=== PATIENT | female | born 1940 | race Two or more races ===

== ENCOUNTER 2017-09-15 19:33 | Inpatient (IN) | payer MEDICARE ==
[~2017-09-15] VITALS: Ht 160 cm; Wt 74.8 kg
[2017-09-15] MEDS ORDERED: MAGNESIUM HYDROXIDE 30 ML UDC PO PRN (20:00)
[2017-09-15] MEDS ORDERED: ACETAMINOPHEN 325 MG TABLET PO PRN (20:00)
[2017-09-15] MEDS ORDERED: ZOLPIDEM TARTRATE 5 MG TABLET PO PRN (20:00)
[2017-09-15] MEDS ORDERED: MAG HYDROX/AL HYDROX/SIMETH 30 ML UDC PO PRN (20:00)
--- NOTE | 2017-09-15 20:00 | NUR ---
GPS PUSH BUTTON SWITCH ASSEMBLER NOTES: ADMITTED AT 77YO/ FEMALE FROM [facility] ON 5150 HOLD FOR DANGER TO SELF AND GRAVE DISABILITY. PER HOLD, PATIENT WAS OBSERVED DRIVING AT SPEED OVER 100MPH, INVOLVED IN HIGH SPEED PURSUIT. PATIENT WILL BE UNDER THE CARE OF DR. JONES AND DR. RITTER, PSYCHE AND MEDICAL DOCTORS RESPECTIVELY. PATIENT BROUGHT INTO THE UNIT BY EMT PERSONNEL, USHERED TO BED. CHANGED TO PATIENT'S GOWN. PATIENT AT FIRST WAS RESISTANT WITH STAFF WITH SHE WAS BEING HELP BUT SOMEHOW MANAGED TO COOPERATE AFTER BEING EXPLAINED THOROUGHLY. UPON FACE TO FACE ASSESSMENT BY THE SUPERVISOR PORCELAIN DEPARTMENT, THE PATIENT PRESENTS ALERT AND ORIENTED X1-2, PATIENT ABLE TO ANSWER QUESTION LIKE HER BIRTHDAY AND THE YEAR, HOWEVER SHE HAS FLIGHT OF IDEAS, LIKE WHEN BEING ASKED, "DO YOU HAVE MEDICAL PROBLEMS AND MEDICATIONS THAT YOU'RE TAKING?" PATIENT ANSWERED, "YES, I TAKE VITAMIN D, 3 MEQ DAILY AND OXYGEN, AND YEAH, SILVER AND GOLD HAVE I NONE, BUT IT'S ONLY YOU!", "I NEED TO TAKE THE FLY OUT OF YOUR SHIRT"! SHE APPEARS TO BE UNKEMPT, DISHEVELED, NOT ABLE TO STATE WHAT SHE NEEDS. SHE HAS PERIODS OF GETTING AGITATED AND SCREAMING AT STAFF. NEEDS REDIRECTION AT TIMES. LIMIT SETTING DONE. REALITY ORIENTATION DONE. BELONGINGS AND CONTRABAND CHECKED. SKIN AND BODY ASSESSMENT CHECKED WITH CHRISTOPHER BERNARD. PICTURES TAKEN AND PLACED IN THE CHART. PATIENT ORIENTED TO STAFF, UNIT, CARE PLAN AND DOCTORS. Q15 MIN CHECKS INITIATED. PATIENT IS AMBULATORY HOWEVER FALL PRECAUTIONS IS STILL OBSERVED. PATIENT HAS NO KNOWN MEDICAL PROBLEM PER REPORT FROM EMT PERSONNEL AND DAY SHIFT NURSESKIP. NO INFORMATION PROVIDED FOR FAMILY TO NOTIFY. WILL COLLABORATE WITH COMPOSITION STONE APPLICATOR ON THESE MATTERS. WILL MONITOR PATIENT'S MOOD AND BEHAVIOR. WILL ENDORSE PATIENT TO DAY SHIFT NURSE.
[2017-09-15 20:35] VITALS: BP 155/53
[2017-09-16] MEDS ORDERED: ZOLPIDEM TARTRATE 5 MG TABLET ONE (00:16)
--- NOTE | 2017-09-16 00:19 | NUR ---
GPS RN NOTES: PATIENT REQUESTED FOR SLEEPING MEDICATION- AMBIEN 5 MG PULLED OUT FROM OMNICELL BY HEAD OF ETHICS AND COMPLIANCE-MIGEL AN OVERRIDE. GIVEN TO PATIENT REQUESTED. WILL MONITOR PATIENT'S SLEEPING PATTERN.
[2017-09-16] MEDS ORDERED: ASPI81TA35 (06:25)
[2017-09-16] MEDS ORDERED: CALC0.253 (06:25)
[2017-09-16] MEDS ORDERED: SIMV20TA6 (06:25)
[2017-09-16] MEDS ORDERED: QUET25TA (06:25)
[2017-09-16] MEDS ORDERED: ESZO1TAB12 (06:25)
[2017-09-16 08:00] VITALS: BP 127/53
[2017-09-16] MEDS: VENLAFAXINE XR 75 MG CAP.SR.24H PO SCH (14:07)
[2017-09-16 15:53] VITALS: BP 141/67
[2017-09-16 19:55] VITALS: BP 141/68
[2017-09-16] MEDS: QUETIAPINE FUMARATE 25 MG TABLET PO SCH (22:06)
[2017-09-17 08:00] VITALS: BP 130/64
[2017-09-17] MEDS: VENLAFAXINE XR 75 MG CAP.SR.24H PO SCH (08:46)
[2017-09-17 08:49] LABS: ALANINE AMINOTRANSFERASE 34 U/L (12-78); ALBUMIN 3.4 g/dL (3.4-5.0); ALKALINE PHOSPHATASE 62 U/L (46-116); ASPARTATE AMINOTRANSFERASE 34 U/L (15-37); BILIRUBIN,TOTAL 0.6 mg/dL (0.2-1.0); CALCIUM, SERUM 9.1 mg/dL (8.5-10.1); CARBON DIOXIDE 29 mmol/L (21-32); CHLORIDE 108 mmol/L (98-107); CREATININE 1.4 mg/dL (0.6-1.3); GLUCOSE 107 mg/dL (74-106); POTASSIUM 3.9 mmol/L (3.5-5.1); SODIUM SERUM 147 mmol/L (136-145); UREA NITROGEN, BLOOD 29 mg/dL (7-18)
[2017-09-17 08:54] LABS: CHOLESTEROL 219 mg/dL (<200); HDL CHOLESTEROL 68 mg/dL (40-60); LDL 126 mg/dL (0-99); TRIGLYCERIDES 111 mg/dL (30-150)
[2017-09-17 11:12] LABS: THYROID STIMULATING HORMONE 0.862 uIU/mL (0.358-3.74)
[2017-09-17 12:17] LABS: BASOPHILS % (AUTO) 0.1 % (0.0-2.0); EOSINOPHILS # (AUTO) 0.1 /CMM (0.0-0.7); EOSINOPHILS % (AUTO) 0.8 % (0.0-6.0); HEMATOCRIT 39 % (33-45); HEMOGLOBIN 12.8 g/dL (11.5-14.8); LYMPHOCYTES # (AUTO) 1.5 /CMM (0.8-4.8); LYMPHOCYTES % (AUTO) 12.7 % (20.0-44.0); MEAN CORPUSCULAR HEMOGLOBIN 29 PG (26.0-33.0); MEAN CORPUSCULAR HGB CONC 33 g/dl (31.0-36.0); MEAN CORPUSCULAR VOLUME 88 fL (82-100); MONOCYTES # (AUTO) 0.7 /CMM (0.1-1.30); MONOCYTES % (AUTO) 5.7 % (2.0-12.0); NEUTROPHILS # (AUTO) 9.5 /CMM (1.8-8.9); NEUTROPHILS % (AUTO) 80.7 % (43.0-81.0); PLATELET COUNT (AUTO) 318 /CMM (150-450); RDW COEFFICIENT OF VARIATION 14.1 (11.5-15.0); WHITE BLOOD COUNT (AUTO) 11.8 K/uL (4.3-11.0)
[2017-09-17 15:35] VITALS: BP 146/78
[2017-09-17 20:00] VITALS: BP 166/92
[2017-09-17] MEDS: QUETIAPINE FUMARATE 25 MG TABLET PO SCH (21:42)
[2017-09-18 07:40] LABS: APPEARANCE,URINE CLOUDY (CLEAR); BILIRUBIN,URINE 2+ (NEGATIVE); BLOOD, URINE NEGATIVE Ery/uL (NEGATIVE); COLOR,URINE YELLOW (YELLOW); KETONES,URINE 1+ (NEGATIVE); LEUKOCYTE ESTERASE ,URINE TRACE (NEGATIVE); NITRITE, URINE NEGATIVE (NEGATIVE); PROTEIN,URINE 1+ mg/dl (NEGATIVE); UGLUCOSE NEGATIVE (NEGATIVE); UROBILINOGEN,URINE 0.2 EU/dL (0.2)
[2017-09-18] MEDS: VENLAFAXINE XR 75 MG CAP.SR.24H PO SCH (08:20)
[2017-09-18 08:55] LABS: BACTERIA,URINE Few /HPF (None Seen); RBC,URINE 0-2 /HPF (0-2); SQUAMOUS EPITHELIAL CELL,UR Few /HPF (None Seen); URINE AMORPHOUS URATE Many /HPF (None Seen)
[2017-09-18 09:27] VITALS: BP 140/59
--- NOTE | 2017-09-18 11:03 | NUR ---
Initial Discharge Note: [place] [address] [address]. Patient states she wants to return home. CYN received a call from patient's long-term outpatient psychiatrist, Dr. Franco [phone]. Dr. Franco stated that patient is usually on 325mg of Seroquel and that she is very functional. CYN will relay this information to psychiatrist Dr. Banks. Dr. 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 CYN called patient's son, Felipe Robertson at [phone] and left him a voicemail with her direct contact information.
[2017-09-18 16:28] VITALS: BP 166/73
[2017-09-18] MEDS: LORAZEPAM 1 MG TABLET PO PRN (19:45)
[2017-09-18 20:54] VITALS: BP 172/72
[2017-09-18] MEDS: QUETIAPINE FUMARATE 25 MG TABLET PO SCH (21:16)
[2017-09-19 08:00] VITALS: BP 135/77
[2017-09-19] MEDS: VENLAFAXINE XR 75 MG CAP.SR.24H PO SCH (08:22)
[2017-09-19] MEDS ORDERED: diphenhydrAMINE HCL 50 MG CAPSULE PO PRN (15:30)
[2017-09-19 15:34] VITALS: BP 139/69
--- NOTE | 2017-09-19 19:45 | NUR ---
GPS/TOMOGRAPHIC TECH; RECEIVED PT IN HER ROOM SITTING ON THE CHAIR CLOSED TO THE OTHER PT IN BED -2 KEEP TALKING AND KIND OF DISTURBANCE TO THE PT IN BED # 2. PT WAS INSTRUCTED TO MOVE TO HER BED .
[2017-09-19 20:00] VITALS: BP 142/78
--- NOTE | 2017-09-19 22:00 | NUR ---
GPS/SAP ARCHITECT; AT THIS TIME PT STILL SITTING ON THE CHAIR NEAR HER BED TALKING TO HERSELF.
[2017-09-19] MEDS: QUETIAPINE FUMARATE 25 MG TABLET PO SCH (22:16)
[2017-09-19] MEDS: LORAZEPAM 1 MG TABLET PO PRN (23:13)
--- NOTE | 2017-09-19 23:55 | NUR ---
GPS/LENS POLISHER; RODRICK ESPINOZA TOLD ME THAT PT FELT DIZZY. I CHECKED THE PT NOTED SITTING ON THE CHAIR SLEEPING . BREATHING FINE. I WOKE UP THE PT AND WITH THHE HELP OF THE MANAGER STRATEGY & ACCOUNTKolby AGUILA WE TRANSFERRED THE PT TO BED.
[2017-09-20 08:00] VITALS: BP 135/94
[2017-09-20] MEDS: LORAZEPAM 1 MG TABLET PO PRN ×2 (08:35→19:38)
[2017-09-20] MEDS: VENLAFAXINE XR 75 MG CAP.SR.24H PO SCH (08:36)
--- NOTE | 2017-09-20 08:36 | NUR ---
RN-CO: ATIVAN 1 MG PO GIVEN, PATIENT IS VERY RESTLESS, AND ANXIOUS.
--- NOTE | 2017-09-20 09:00 | NUR ---
Discharge Planning: CYN spoke with patient's son Felipe Robertson at [phone]. Felipe stated that he just wanted updates regarding his mom. Felipe stated that he had no concerns regarding his mom returning home once she is stable.
[2017-09-20 16:44] VITALS: BP 132/86
[2017-09-20] MEDS: DRONABINOL (2.5 MG) 2.5 MG CAPSULE PO SCH (16:49)
--- NOTE | 2017-09-20 19:38 | NUR ---
DWP-MB-NDRKS: GAVE ATIVAN 1 MG PO DUE TO SEVERE ANXIETY UPON PT REQUEST AND WILL CONTINUE TO MONITOR FOR EFFECTIVENESS OF MEDICATION
[2017-09-20 20:00] VITALS: BP 155/71
[2017-09-20] MEDS: QUETIAPINE FUMARATE 25 MG TABLET PO SCH (21:20)
[2017-09-21 08:00] VITALS: BP 149/81
[2017-09-21] MEDS: VENLAFAXINE XR 75 MG CAP.SR.24H PO SCH (09:34)
[2017-09-21] MEDS: DRONABINOL (2.5 MG) 2.5 MG CAPSULE PO SCH ×2 (09:34→16:40)
[2017-09-21 16:00] VITALS: BP 142/69
--- NOTE | 2017-09-21 19:03 | NUR ---
GPS/RN PT CHOOSE NOT TO ANSWER TO RN(SELECTIVELY MUTE) SHE WAS COMMUNICATING WITH NURSE MILDRED THE SHIFT. VSS. 142/60 O2 94.
[2017-09-21 20:00] VITALS: BP 156/79
[2017-09-21] MEDS: QUETIAPINE FUMARATE 25 MG TABLET PO SCH (21:29)
[2017-09-22 08:00] VITALS: BP 148/76
[2017-09-22] MEDS: DRONABINOL (2.5 MG) 2.5 MG CAPSULE PO SCH ×2 (08:43→17:09)
[2017-09-22] MEDS: VENLAFAXINE XR 75 MG CAP.SR.24H PO SCH (08:43)
[2017-09-22 16:11] VITALS: BP 157/64
[2017-09-22 19:40] VITALS: BP 153/73
[2017-09-22] MEDS: QUETIAPINE FUMARATE 25 MG TABLET PO SCH (21:29)
[2017-09-23] MEDS: DRONABINOL (2.5 MG) 2.5 MG CAPSULE PO SCH ×2 (08:08→16:17)
[2017-09-23] MEDS ORDERED: VENLAFAXINE XR 75 MG CAP.SR.24H PO SCH (09:00)
[2017-09-23 09:50] VITALS: BP 162/78
[2017-09-23] MEDS: VENLAFAXINE XR 75 MG CAP.SR.24H PO SCH (12:33)
[2017-09-23 16:00] VITALS: BP 161/80
[2017-09-23 19:53] VITALS: BP 178/113
[2017-09-23] MEDS: QUETIAPINE FUMARATE 25 MG TABLET PO SCH (21:32)
[2017-09-24] MEDS: LORAZEPAM 0.5 MG TABLET PO PRN ×3 (05:13→11:04)
[2017-09-24 08:00] VITALS: BP 160/78
[2017-09-24] MEDS: DRONABINOL (2.5 MG) 2.5 MG CAPSULE PO SCH ×2 (10:59→16:46)
[2017-09-24] MEDS: VENLAFAXINE XR 75 MG CAP.SR.24H PO SCH (10:59)
--- NOTE | 2017-09-24 11:04 | NUR ---
rn notes administered ativan 0.25 mg po prn for anxiety , yelling, paranoid, delusional, and screaming, v/s taken bp-160/ 78, p-96, continued monitoring.
[2017-09-24] MEDS: QUETIAPINE FUMARATE 25 MG TABLET PO SCH ×3 (11:34→21:33)
[2017-09-24 16:29] VITALS: BP 147/61
[2017-09-24 20:31] VITALS: BP 135/73
[2017-09-24] MEDS ORDERED: QUETIAPINE FUMARATE 100 MG TABLET ONE (21:25)
--- NOTE | 2017-09-24 21:31 | NUR ---
GPS RN NOTES: QUANTITY OF SEROQUEL 25MG DOES NOT MEET THE INTENDED DOSE THERE WERE 3 ITEMS LEFT IN THE OMNICELL. CHARGE NURSE CAROL NOTIFIED, SHE PULLED OUT FROM OMNICELL AN OVERRIDE, SEROQUEL 100MG 1 TAB. ADMINISTERED TO PATIENT ORDERED.
[2017-09-25] MEDS: LORAZEPAM 0.5 MG TABLET PO PRN (03:43)
[2017-09-25 08:00] VITALS: BP 133/81
[2017-09-25] MEDS: VENLAFAXINE XR 75 MG CAP.SR.24H PO SCH (09:34)
[2017-09-25] MEDS: DRONABINOL (2.5 MG) 2.5 MG CAPSULE PO SCH ×2 (09:34→17:27)
[2017-09-25] MEDS: QUETIAPINE FUMARATE 25 MG TABLET PO SCH ×3 (09:34→21:20)
[2017-09-25 16:00] VITALS: BP 122/72
--- NOTE | 2017-09-25 17:04 | NUR ---
RNKarthikeyanCO: PATIENT STATED " I WAS NEVER EVER ALLERGIC TO ASPIRIN." " " IT HELPED ME A LOT FOR MY HEADACHE."
[2017-09-25] MEDS ORDERED: IBUPROFEN 400 MG TABLET PO ONE (17:30)
[2017-09-25 20:21] VITALS: BP 112/80
[2017-09-26 08:00] VITALS: BP 141/88
[2017-09-26] MEDS: QUETIAPINE FUMARATE 25 MG TABLET PO SCH ×2 (08:55→21:41)
[2017-09-26] MEDS: DRONABINOL (2.5 MG) 2.5 MG CAPSULE PO SCH ×2 (08:55→16:52)
[2017-09-26] MEDS: VENLAFAXINE XR 75 MG CAP.SR.24H PO SCH (08:55)
[2017-09-26 16:06] VITALS: BP 126/79
[2017-09-26] MEDS: QUETIAPINE FUMARATE 100 MG TABLET PO SCH (16:52)
[2017-09-26 20:00] VITALS: BP 113/64
--- NOTE | 2017-09-26 22:34 | NUR ---
Patient is calm and cooperative, observed sitting up in chair, alert but confuse at times. Patient denies thought of harming others or self, no AVH noted. Patient accepted and tolerates hs medications with no apparent distress noted, will continue to monitor for safety and provide support.
--- NOTE | 2017-09-27 03:02 | NUR ---
At the present time, patient is observed resting in bed with eyes closed, respirations even and unlabored, will continue to monitor for safety and provide support.
[2017-09-27 08:00] VITALS: BP 114/58
[2017-09-27] MEDS: QUETIAPINE FUMARATE 100 MG TABLET PO SCH ×4 (09:05→22:26)
[2017-09-27] MEDS: VENLAFAXINE XR 75 MG CAP.SR.24H PO SCH (09:06)
[2017-09-27] MEDS: DRONABINOL (2.5 MG) 2.5 MG CAPSULE PO SCH ×2 (09:06→17:40)
--- NOTE | 2017-09-27 11:14 | NUR ---
Discharge Planning: On 09/25/17, CYN informed Dr. Banks that patient's long-term outpatient psychiatrist, Dr. Franco [phone] would like a phone call. Today, 09/27/17, Dr. Banks informed CYN that he had a conversation with Dr. Franco regarding patient's discharge/treatment and that patient will be going to a IOP [intensive outpatient program]. CYN called and left a voicemail for Dr. Franco to confirm the discharge plan and to discuss details of the discharge.
[2017-09-27 16:00] VITALS: BP 120/57
--- NOTE | 2017-09-27 18:17 | NUR ---
PATIENT APPEARED MORE DEPRESSED THIS SHIFT WITH LITTLE SELF DISCLOUSURE ,MED COMPLIANT EATING A LITTLE NEEDS ENCOURAGEMENT. CONTINUE TO MONITOR
[2017-09-27 21:43] VITALS: BP 127/58
--- NOTE | 2017-09-28 07:34 | NUR ---
AT AROUND 0700. PATIENT WAS FOUND ON THE FLOOR. NO PULSE, NO BP. CALLED [facility]ALANI JARQUIN TEAM. INTUBATED AT 0705. RN TRADER FIXED INCOME AWARE. INFORMED DR. ESTRADA REGARDING THE INCIDENT. ORDERED TRANSFER TO ICU ROOM 257 AT 0710. LATEST V/S 115/87 PULSE 161 BLOOD SUGAR 257MG/DL. CALLED SON BRIAN JOHN LEFT MESSAGE ON VOICEMAIL.
== END 2017-09-28 07:19 | disposition short-term general hospital (02) | DRG 885 ==
LOC: GPS 19:33
PROVIDERS: ADMIT Psychiatry & Neurology Psychiatry; ATTEND Psychiatry & Neurology Psychiatry
DX: F32.3 Major depressive disorder, single episode, severe with psychotic features (principal); I21.A1 Myocardial infarction type 2; N17.0 Acute kidney failure with tubular necrosis; I46.9 Cardiac arrest, cause unspecified; E87.0 Hyperosmolality and hypernatremia; F23 Brief psychotic disorder; R57.9 Shock, unspecified; J93.9 Pneumothorax, unspecified; E78.5 Hyperlipidemia, unspecified; F03.90 Unspecified dementia, unspecified severity, without behavioral disturbance, psychotic disturbance, mood disturbance, and anxiety; Z79.82 Long term (current) use of aspirin; Z79.899 Other long term (current) drug therapy; Z81.8 Family history of other mental and behavioral disorders; F29 Unspecified psychosis not due to a substance or known physiological condition
CPT/HCPCS: 36415; 70450-TC; 71045-TC; 80053-TC; 80061-TC; 81000-TC; 82746; 82962-TC; 83540-TC; 84443-TC; 84484-TC; 85025-TC; 87081-TC; Q0163; Q0167

== ENCOUNTER 2017-09-28 07:24 | Inpatient (IN) | payer MEDICARE ==
[2017-09-28] VITALS (52 sets, daily range): BP systolic 63–211; BP diastolic 40–159
[~2017-09-28] VITALS: Ht 162.6 cm; Wt 79.1 kg
--- NOTE | 2017-09-28 07:00 | NUR ---
HR COORDINATOR RECEIVED PATIENT FROM GPS, UNRESPONSIVE, INTUBATED ON MECHANICAL VENTILATORY SUPPORT SATURATION AT 70% NO RESPONSE TO PAIN STIMULI NO MOVEMENT CONNECTED TO AUTOMOBILE BODY WORKER, WEAK PULSES NOTED UPON PALPATION ARRHYTHMIA NOTED BLOOD PRESSURE UNABLE TO GET 0706 PATIENT WENT TO CARDIAC ARREST THE SECOND TIME CPR STARTED, EPINEPHRINE GIVEN X2 , BICAR X 1 STARTED LEVOPHED AT 10 MCGS, SBP AT 50'S RESUSCITATED AT 0722 CENTRAL LINE INSERTED BY NEMESIO ROUSE SMALL CATHETER DRAINING TO YELLOWISH URINE, LARGE IN AMOUNT MONITORED CLOSELY Addendum: 09/28/17 at 1820 by ALEXANDER ALFRED RN NEMESIO ROUSE INSERTED CHEST TUBE LOCATED AT HIS LEFT LOWER CHEST LYING AT THE PATIENT'S MID-AXILLARY LINE CENTRAL CATHETER IS ALSO INTERNAL SECURITY MANAGER OVER FEMORAL VEIN PRIOR TO CHEST TUBE INSERTION CENTRAL LINE PATENT AND INTACT
[~2017-09-28 07:24] MED LIST: ASPI81TA35; CALC0.253; ESZO1TAB12; QUET25TA; SIMV20TA6
[2017-09-28] MEDS ORDERED: IV NS 0.9% 1,000 ML BAG IV PRN (08:00)
[2017-09-28 08:16] LABS: BASOPHILS % (AUTO) 0.2 % (0.0-2.0); EOSINOPHILS # (AUTO) 0.1 /CMM (0.0-0.7); EOSINOPHILS % (AUTO) 0.6 % (0.0-6.0); HEMATOCRIT 32 % (33-45); HEMOGLOBIN 10.5 g/dL (11.5-14.8); LYMPHOCYTES % (AUTO) 17.3 % (20.0-44.0); MEAN CORPUSCULAR HEMOGLOBIN 29 PG (26.0-33.0); MEAN CORPUSCULAR HGB CONC 33 g/dl (31.0-36.0); MEAN CORPUSCULAR VOLUME 88 fL (82-100); MONOCYTES # (AUTO) 0.5 /CMM (0.1-1.30); MONOCYTES % (AUTO) 4.4 % (2.0-12.0); NEUTROPHILS # (AUTO) 8.8 /CMM (1.8-8.9); NEUTROPHILS % (AUTO) 77.5 % (43.0-81.0); PLATELET COUNT (AUTO) 95 /CMM (150-450); RDW COEFFICIENT OF VARIATION 15.4 (11.5-15.0); WHITE BLOOD COUNT (AUTO) 11.4 K/uL (4.3-11.0)
[2017-09-28 08:23] LABS: CALCIUM, SERUM 7.7 mg/dL (8.5-10.1); CARBON DIOXIDE 19 mmol/L (21-32); CHLORIDE 106 mmol/L (98-107); CREATININE 1.7 mg/dL (0.6-1.3); GLUCOSE 281 mg/dL (74-106); POTASSIUM 4.1 mmol/L (3.5-5.1); SODIUM SERUM 144 mmol/L (136-145); UREA NITROGEN, BLOOD 26 mg/dL (7-18)
[2017-09-28 08:30] LABS: INR 1.34 (0.87-1.13)
[2017-09-28 08:32] LABS: ALANINE AMINOTRANSFERASE 114 U/L (12-78); ALBUMIN 2.2 g/dL (3.4-5.0); ALKALINE PHOSPHATASE 68 U/L (46-116); ASPARTATE AMINOTRANSFERASE 128 U/L (15-37); BILIRUBIN,TOTAL 0.4 mg/dL (0.2-1.0)
[2017-09-28 08:36] LABS: TROPONIN I 0.355 ng/mL (0.00-0.056)
[2017-09-28] MEDS ORDERED: IV NS 0.9% 1,000 ML IV PRN ×2 (08:49→09:30)
[2017-09-28 09:00] LABS: ABG BASE EXCESS -6.2 mmol/L; ABG OXYGEN SATURATION 98.7 % (92.0-98.5); ABG PCO2 31.5 mmHg (35.0-45.0); ABG PH 7.374 (7.350-7.450); ABG PO2 301.1 mmHg (75.0-100.0); AaDO2 380.4 mmHg; COHb 0.3 % (0.5-1.5); MetHb 0.3 % (0.0-1.5); O2Hb 98.1 % (94.0-97.0); SITE, ABG Right Radial; VT, ABG 550 mL
[2017-09-28] MEDS ORDERED: ENOXAPARIN SODIUM 40 MG/0.4 ML DISP.SYRIN SQ SCH (09:00)
[2017-09-28] MEDS ORDERED: ZOLPIDEM TARTRATE 5 MG TABLET PO PRN (09:00)
[2017-09-28] MEDS ORDERED: ACETAMINOPHEN 325 MG TABLET PO PRN (09:00)
[2017-09-28] MEDS ORDERED: Z GUARD REMEDY 2 OZ OINT TP PRN (09:00)
[2017-09-28] MEDS ORDERED: ONDANSETRON HCL/PF 4 MG/2 ML VIAL IVP PRN (09:00)
--- NOTE | 2017-09-28 09:00 | NUR ---
PAINT FACTORY WORKER DR. MONTENEGRO CAME IN TO PUT A NEW CHEST TUBE OVER THE PATIENT'S LEFT ANTERIOR CHEST DUE TO TENSION PNEUMOTHORAX MONITORED CHEST TUBE DRAINAGE AND INTERMITTENT FLUCTUATION SEEN AT THE PLEUR E VAC
[2017-09-28] MEDS: PANTOPRAZOLE 40 MG VIAL IV SCH (09:26)
[2017-09-28] MEDS: IV NS 0.9% 1,000 ML IV PRN ×2 (09:52→17:48)
[2017-09-28 09:59] LABS: BAND % (MANUAL) 1 % (0.0-5.0); EOSINOPHILS % (MANUAL) 1 % (0-4); LYMPHOCYTES % (MANUAL) 10 % (16-48); MONOCYTES % (MANUAL) 3 % (0-11.0); NEUTROPHILS % (MANUAL) 85 (42-76)
--- NOTE | 2017-09-28 10:52 | NUR ---
PT. UNSTABLE FOR CT PER JASS.
[2017-09-28] MEDS ORDERED: ENOXAPARIN SODIUM 30 MG/0.3 ML DISP.SYRIN SQ SCH (11:00)
[2017-09-28] MEDS: PROPOFOL 10MG/ML 50ML 50 ML IV PRN ×3 (12:00→18:55)
[2017-09-28] MEDS ORDERED: LORAZEPAM INJ 2 MG/ML VIAL ONE (13:22)
[2017-09-28 13:24] LABS: MAGNESIUM 2.3 mg/dL (1.8-2.4); PHOSPHORUS 7.3 mg/dL (2.5-4.9)
[2017-09-28] MEDS: LORAZEPAM INJ 2 MG/ML VIAL IV PRN ×4 (13:27→23:43)
[2017-09-28] MEDS ORDERED: phenytoin SODIUM IV 1,000 MG in IV NS 0.9% 100 ML IV ONE (14:30)
--- NOTE | 2017-09-28 16:54 | NUR ---
Pt remains orally intubated with 7.5 et-tube secured at 23cm. settings as ordered alarms set and audible. left sided chest tube noted. b/s equal. mod pale yellow sputum. ambubag at head of bed vent plugged in red outlet. Addendum: 09/28/17 at 1659 by RONAL SANCHEZ RT Amended: Links added.
--- NOTE | 2017-09-28 18:20 | NUR ---
PEDIATRICIAN ACTIVE PRACTICE PATIENT STILL HAS JERKY INVOLUNTARY MOVEMENT UNTIL DILANTIN INFUSION, LESS JERKING IS SEEN MONITORED CLOSELY LEVOPHED TITRATING ACCORDING SMALL CATHETER DRAINING TO YELLOWISH URINE LARGE IN AMOUNT PATIENT IS SEEN EARLIER BY CAM BRODERICK AND BIANCA WITH NEW ORDERS MADE AND CARRIED OUT ENDORSED TO NOD
[2017-09-28] MEDS: NOREPINEPHRINE 8 MG in IV D5W 500 ML IV PRN (18:55)
--- NOTE | 2017-09-28 19:00 | NUR ---
EXAMINATION GRADER NOTES Received patient orally intubated,sedated on the ventilator on AC mode.Sedated on Diprivan drip ,slightly responds to pain and slight cough when suctioned via OET,but no movement noted except for slight twitch on and off.On Levophed drip for BP support.Chest tube x2 to left lateral and left mid clavicular to pleurovac drainage .+ subcutaneous emphysema on left upper chest.
--- NOTE | 2017-09-28 21:00 | NUR ---
PULL UP HAND NOTES Called DR. Rausch to relay troponin level $ 2044,responded made aware of troponin =3.1 from 2.5. Ordered to repeat troponinin 6 hrs. and do EKG x1 now.
[2017-09-28] MEDS: PHENYTOIN SODIUM IV 50 MG/ML VIAL IV SCH (21:06)
--- NOTE | 2017-09-28 21:53 | NUR ---
PT RECEIVED ON VENT VIA CHARTED SETTINGS AND ROUTE. TOLERATING VENT SETTINGS. AMBU BAG AT BEDSIDE, ALARMS SET AND AUDIBLE. VENT PLUGGED INTO RED OUTLET. NO RESP DISTRESS NOTED. WILL CONTINUE TO MONITOR Addendum: 09/28/17 at 2153 by SHAY MONTALVO RT Amended: Links added.
[2017-09-29] VITALS (68 sets, daily range): BP systolic 93–155; BP diastolic 29–80
--- NOTE | 2017-09-29 | NUR ---
SHIP SURVEYOR NOTE Remains sedated noted some myoclonic jerky movements,(Ativan given @2343).Sedated but responds to deep pain,with slight cough when suctioned.Will try to wean levophed as BP more stable.
[2017-09-29] MEDS: PROPOFOL 10MG/ML 50ML 50 ML IV PRN ×6 (00:11→19:30)
[2017-09-29] MEDS: IV NS 0.9% 1,000 ML IV PRN ×2 (01:45→10:00)
[2017-09-29 03:21] LABS: ALANINE AMINOTRANSFERASE 96 U/L (12-78); ALBUMIN 2.1 g/dL (3.4-5.0); ALKALINE PHOSPHATASE 67 U/L (46-116); ASPARTATE AMINOTRANSFERASE 83 U/L (15-37); BILIRUBIN,TOTAL 0.4 mg/dL (0.2-1.0); CALCIUM, SERUM 7.3 mg/dL (8.5-10.1); CARBON DIOXIDE 21 mmol/L (21-32); CHLORIDE 116 mmol/L (98-107); CREATININE 1.3 mg/dL (0.6-1.3); GLUCOSE 178 mg/dL (74-106); MAGNESIUM 1.8 mg/dL (1.8-2.4); PHOSPHORUS 2.4 mg/dL (2.5-4.9); POTASSIUM 3.3 mmol/L (3.5-5.1); SODIUM SERUM 151 mmol/L (136-145); UREA NITROGEN, BLOOD 25 mg/dL (7-18)
[2017-09-29 03:24] LABS: CHOLESTEROL 139 mg/dL (<200); HDL CHOLESTEROL 41 mg/dL (40-60); LDL 76 mg/dL (0-99); TRIGLYCERIDES 145 mg/dL (30-150)
--- NOTE | 2017-09-29 04:00 | NUR ---
BYPRODUCTS MAKER NOTES Started to have myoclonic /jerky movements again,prn Ativan given.Slowly titrating Levophed down ,so far tolerating well.AM bath done.Chest tubes remains intact ,tubings patent with serosanginous drainage to pleurovac..
[2017-09-29] MEDS: LORAZEPAM INJ 2 MG/ML VIAL IV PRN (04:14)
[2017-09-29] MEDS: PHENYTOIN SODIUM IV 50 MG/ML VIAL IV SCH ×3 (05:13→20:50)
--- NOTE | 2017-09-29 07:00 | NUR ---
MANAGER TREASURY NOTES 0600 Remains sedated and on low dose Levophed,tolerated weaning off Levophed all night.From 2 mcg/min Levophed turned off. 0700Noted BP drop again to 90's ,resumed back Levophed drip @ 2 mcg/min. Report given to day shift RN.
--- NOTE | 2017-09-29 07:30 | NUR ---
PRODUCT MARKETING COORDINATOR RECEIVED PATIENT ON PROPOFOL @ 20 MCGS ON MECHANICAL VENTILATORY SUPPORT SATURATING 98% AFEBRILE, WARM TO TOUCH STILL HAS SEROSANGUINEOUS OUT OVER HER PLEUR E VAC STILL ON LEVOPHED DRIP RUNNING AT 2 MCGS BLOOD PRESSURE WNL ACTIVE BOWEL SOUND HEARD URINE OUTPUT AT LARGE AMOUNT DRAINING TO SMALL CATHETER BAG
[2017-09-29 08:54] LABS: HEMATOCRIT 30 % (33-45); LYMPHOCYTES # (AUTO) 1.4 /CMM (0.8-4.8); MEAN CORPUSCULAR HEMOGLOBIN 29 PG (26.0-33.0); MEAN CORPUSCULAR HGB CONC 33 g/dl (31.0-36.0); MEAN CORPUSCULAR VOLUME 88 fL (82-100); MONOCYTES # (AUTO) 1.1 /CMM (0.1-1.30); MONOCYTES % (AUTO) 5.5 % (2.0-12.0); NEUTROPHILS # (AUTO) 16.9 /CMM (1.8-8.9); NEUTROPHILS % (AUTO) 87.5 % (43.0-81.0); PLATELET COUNT (AUTO) 117 /CMM (150-450); RDW COEFFICIENT OF VARIATION 15.1 (11.5-15.0); RED BLOOD CELL COUNT(AUTO) 3.42 MIL/uL (4.0-5.2); WHITE BLOOD COUNT (AUTO) 19.3 K/uL (4.3-11.0)
[2017-09-29] MEDS: PANTOPRAZOLE 40 MG VIAL IV SCH (09:05)
--- NOTE | 2017-09-29 09:20 | NUR ---
RT NOTE PT RECEIVED MECHANICALLY VENTILATED VIA 7.5 ETT 23 CM AT LIP. CUFF INFLATED. SETTINGS PRESCRIBED. ALARMS SET PER PROTOCOL AND AUDIBLE. BILATERAL CHEST RISE NOTED. VENT PLUGGED IN TO RED OUTLET. AMBU BAG AT BED SIDE. NO DISTRESS NOTED. WILL CONTINUE TO MONITOR. Addendum: 09/29/17 at 0921 by EMI FINNEY RT Amended: Links added.
[2017-09-29 09:47] LABS: ABG BASE EXCESS 1.6 mmol/L; ABG PCO2 26.6 mmHg (35.0-45.0); ABG PH 7.555 (7.350-7.450); ABG PO2 107.2 mmHg (75.0-100.0); AaDO2 219.4 mmHg; COHb 0.2 % (0.5-1.5); MetHb 0.8 % (0.0-1.5); PEEP,BG 0 cm H2O; SITE, ABG Left Radial; VENT MODE, BG AC 24 550 50% +0; VT, ABG 550 mL
--- NOTE | 2017-09-29 10:00 | NUR ---
FLOOR MECHANIC PATIENT WAS BROUGHT FOR CT SCAN OF THE HEAD NO UNTOWARD SYMPTOMS SEEN
--- NOTE | 2017-09-29 10:06 | NUR ---
RT NOTE PT RESPIRATORY RATE LOWERED TO 16. TIDAL VOLUME LOWERED TO 500. PER MD PELEG ORDER. PT STABLE. NO DISTRESS NOTED. Addendum: 09/29/17 at 1006 by EMI FINNEY RT Amended: Links added.
[2017-09-29] MEDS ORDERED: FEE PK DOSING 1 MIN EA MC ONE (10:33)
[2017-09-29] MEDS: VANCOMYCIN 1 GM in IV D5W 250 ML IV SCH (11:17)
[2017-09-29] MEDS: IV 1/2NS 1000 ML 1,000 ML IV PRN ×2 (11:18→20:54)
[2017-09-29] MEDS: ENOXAPARIN SODIUM 30 MG/0.3 ML DISP.SYRIN SQ SCH (11:19)
[2017-09-29] MEDS: MEROPENEM 500 MG in IV NS 0.9% 50 ML IV SCH ×2 (12:33→23:01)
[2017-09-29] MEDS: POTASSIUM CL. PREMIX PERIPHER. 50 ML IV SCH ×3 (12:38→15:05)
[2017-09-29] MEDS ORDERED: NEUTRA PHOS 1 POWD.PACKET NG ONE (14:00)
[2017-09-29] MEDS ORDERED: NOREPINEPHRINE 4 MG/4 ML AMPUL IV ONE (14:41)
[2017-09-29] MEDS: FIBERSOURCE HN 1,000 ML BOTTLE GT PRN (15:13)
[2017-09-29] MEDS ORDERED: SODIUM BICARBONATE SYR 50 MEQ/50 ML DISP.SYRIN IV ONE (16:06)
[2017-09-29] MEDS: NOREPINEPHRINE 8 MG in IV D5W 500 ML IV PRN (18:00)
--- NOTE | 2017-09-29 20:00 | NUR ---
received pt from day shift, sedated on Diprivan at 20mcg, SR, receiving levo at 2mcg, on the vent, lung congested, some BL edema, 2 Left chest tubes to suction, low output, intact, no leak noted, OG to feeding tolerates well, f/c good output, v/s stable, no pain, pt turned and repositioned.
[2017-09-30] VITALS (35 sets, daily range): BP systolic 99–156; BP diastolic 42–73
--- NOTE | 2017-09-30 | NUR ---
pt is resting in the bed, sedated on Diprivan at 30mcg, receiving levo at 2mcg, v/s stable, no pain, pt turned and repositioned q2hrs.
[2017-09-30] MEDS: PROPOFOL 10MG/ML 50ML 50 ML IV PRN ×4 (00:02→08:42)
--- NOTE | 2017-09-30 04:25 | NUR ---
pt is resting in the bed, no acute distress overnight, sedated on Diprivan on 30mcg, receiving levo at 2mcg, tolerates feeding, v/s stable, no pain, pt cleaned, changed and repositioned q2hrs.
[2017-09-30] MEDS: PHENYTOIN SODIUM IV 50 MG/ML VIAL IV SCH ×3 (04:33→21:02)
[2017-09-30] MEDS: VANCOMYCIN 1 GM in IV D5W 250 ML IV SCH ×2 (04:34→22:45)
[2017-09-30 05:40] LABS: BASOPHILS % (AUTO) 0.1 % (0.0-2.0); EOSINOPHILS % (AUTO) 0.1 % (0.0-6.0); HEMATOCRIT 29 % (33-45); HEMOGLOBIN 9.5 g/dL (11.5-14.8); LYMPHOCYTES # (AUTO) 1.1 /CMM (0.8-4.8); LYMPHOCYTES % (AUTO) 6.1 % (20.0-44.0); MEAN CORPUSCULAR HEMOGLOBIN 29 PG (26.0-33.0); MEAN CORPUSCULAR HGB CONC 33 g/dl (31.0-36.0); MEAN CORPUSCULAR VOLUME 88 fL (82-100); MONOCYTES % (AUTO) 5.4 % (2.0-12.0); NEUTROPHILS # (AUTO) 16.2 /CMM (1.8-8.9); NEUTROPHILS % (AUTO) 88.3 % (43.0-81.0); PLATELET COUNT (AUTO) 126 /CMM (150-450); RDW COEFFICIENT OF VARIATION 15.7 (11.5-15.0); RED BLOOD CELL COUNT(AUTO) 3.25 MIL/uL (4.0-5.2); WHITE BLOOD COUNT (AUTO) 18.4 K/uL (4.3-11.0)
[2017-09-30 05:46] LABS: CALCIUM, SERUM 7.2 mg/dL (8.5-10.1); CARBON DIOXIDE 25 mmol/L (21-32); CHLORIDE 117 mmol/L (98-107); CREATININE 1.2 mg/dL (0.6-1.3); GLUCOSE 174 mg/dL (74-106); MAGNESIUM 1.9 mg/dL (1.8-2.4); POTASSIUM 3.7 mmol/L (3.5-5.1); SODIUM SERUM 149 mmol/L (136-145); UREA NITROGEN, BLOOD 19 mg/dL (7-18)
[2017-09-30 06:08] LABS: BAND % (MANUAL) 3 % (0.0-5.0); LYMPHOCYTES % (MANUAL) 7 % (16-48); MONOCYTES % (MANUAL) 5 % (0-11.0); NEUTROPHILS % (MANUAL) 85 (42-76)
--- NOTE | 2017-09-30 07:00 | NUR ---
MAIN ENTREE COOK AND CASHIER- INITIAL NOTE RECEIVED PT INTUBATED & SEDATED. PT ORALLY INTUBATED 7.5, 24 @ THE LIP. BEDSIDE MONITOR REVEALS SINUS RHYTHM. LEFT SIDED CHEST TUBES X 2 PRESENT. OGT RUNNING FIBERSOURCE @ 50 ML/HR. SMALL CATHETER DRAINING TO GRAVITY CLEAR, YELLOW URINE. LEFT FEMORAL TLC RUNNIN) DIPRIVAN GTT AT 30 MCG/MIN, 2) LEVOPHED @ 2 MCG/MIN AND 1/2 NS @ 125 ML/HR. SAFETY MEASURES TAKEN: BED LOCKED AND IN LOW POSITION, SIDE RAILS UP X2 AND BED ALARM ON, WILL CONTINUE TO MONITOR.
--- NOTE | 2017-09-30 08:11 | NUR ---
RT PATIENT REC'D ORALLY INTUBATED ON [facility] VENT WITH SETTINGS SET BY MD JOANN MCPHERSON. VENT ALARMS CHECKED + AUDIBLE. CUFF PRESSURE CHECKED ORTHOPEDIC RN. SUCTIONED WITH SMALL AMT PALE SEMI THICK SECRETIONS. B/S DIM WHEEZE. AMBU BAG AT HOB. Addendum: 09/30/17 at 0909 by DONATO CABALLERO RT Amended: Links added.
--- NOTE | 2017-09-30 08:15 | NUR ---
BUS AND SYS INTEGRATION SENIOR MANAGER- SEDATION VACATION. DIPRIVAN TURNED OFF FOR SEDATION VACATION. PT DOES NOT OPEN EYES, DOES TRACK OR FOLLOW COMMANDS. DIPRIVAN RE-STARTED AT PREVIOUS RATE AT 0845. WILL CONTINUE TO MONITOR.
[2017-09-30] MEDS: IV 1/2NS 1000 ML 1,000 ML IV PRN ×2 (08:25→18:41)
[2017-09-30] MEDS: PANTOPRAZOLE 40 MG VIAL IV SCH (08:30)
[2017-09-30] MEDS: ENOXAPARIN SODIUM 30 MG/0.3 ML DISP.SYRIN SQ SCH (08:30)
--- NOTE | 2017-09-30 09:40 | NUR ---
GRINDER MILL OPERATOR- DR. VALENZUELA AT BEDSIDE. UPDATED MD ON PT'S CONDITION. MD AWARE OF SEDATION VACATION RESULTS. PER DR. VALENZUELA, TURN OFF DIPRIVAN AND CONTINUE TO ASSESS PT'S NEUROLOGICAL STATUS, SEE IF PT WAKES UP. DIPRIVAN TURNED OFF PER MD'S ORDER. RESTRAINTS IN PLACE. WILL CONTINUE TO MONITOR. Addendum: 09/30/17 at 1711 by JAZMYN SIMS RN ERROR ON PREVIOUS NOTE: PT DID NOT HAVE RESTRAINTS.
[2017-09-30] MEDS: MEROPENEM 500 MG in IV NS 0.9% 50 ML IV SCH ×2 (11:19→22:01)
--- NOTE | 2017-09-30 12:25 | NUR ---
MAT PUNCHER- CALLED GPS AND SPOKE TO KEG HEADER, ARYAN. INFORMED HER DR. JONES ORDERED HOLD TO BE DISCONTINUED. ARYAN AWARE. WILL CONTINUE TO MONITOR.
[2017-09-30] MEDS ORDERED: NEUTRA PHOS 1 POWD.PACKET NG ONE (13:00)
[2017-09-30] MEDS: ASPIRIN 81 MG TAB.CHEW PO SCH (15:18)
[2017-09-30] MEDS: FIBERSOURCE HN 1,000 ML BOTTLE GT PRN (15:23)
--- NOTE | 2017-09-30 16:00 | NUR ---
BMW SERVICE TECHNICIAN- PT INTUBATED & SEDATED WITH LOW AVERY SCALE. FIRST STEP MATTRESS PLACED FOR SKIN PROTECTION. COMPLETE BED BATH GIVEN. ALL LINENS CHANGED. WILL CONTINUE TO MONITOR.
--- NOTE | 2017-09-30 16:30 | NUR ---
THERAPEUTIC RIDING INSTRUCTOR- URINE, SPUTUM & MRSA CULTURES COLLECTED AND PLACED IN FRIDGE. CALLED LAB FOR CIVIL ENGINEER LAND DEVELOPMENT. WILL CONTINUE TO MONITOR.
--- NOTE | 2017-09-30 20:53 | NUR ---
PT RECEIVED INTUBATED WITH 7.0 ETT SECURED AT 24CM AT THE LIP. PT TOLERATING VENT SETTINGS. SX'D FOR SML AMT OF PALE SECRETIONS. VENT ALARMS SET AND AUDIBLE. AMBU BAG AT BEDSIDE. VENT PLUGGED INTO RED OUTLET. WILL CONTINUE TO MONITOR. Addendum: 09/30/17 at 2053 by EMPERATRIZ KAMARA RT Amended: Links added.
--- NOTE | 2017-09-30 21:00 | NUR ---
received pt from day shift, obtunded/lethargic, responds to pain stimuli, opens eyes at times, SR, on vent, intubated, lungs congested/diminished, L side two chest tubed, intact, connected to suction, no leak noted, OG to feeding, tolerates well, f/c good output, v/s stable, no pain, pt turned and repositioned.
[2017-09-30] MEDS: ATORVASTATIN 10 MG TABLET PO SCH (21:02)
[2017-10-01] VITALS (56 sets, daily range): BP systolic 108–179; BP diastolic 44–132
[2017-10-01 04:44] LABS: BASOPHILS % (AUTO) 0.1 % (0.0-2.0); EOSINOPHILS % (AUTO) 0.3 % (0.0-6.0); HEMATOCRIT 29 % (33-45); HEMOGLOBIN 9.7 g/dL (11.5-14.8); LYMPHOCYTES # (AUTO) 1.1 /CMM (0.8-4.8); MEAN CORPUSCULAR HEMOGLOBIN 30 PG (26.0-33.0); MEAN CORPUSCULAR HGB CONC 34 g/dl (31.0-36.0); MEAN CORPUSCULAR VOLUME 88 fL (82-100); MONOCYTES # (AUTO) 0.7 /CMM (0.1-1.30); MONOCYTES % (AUTO) 4.7 % (2.0-12.0); NEUTROPHILS # (AUTO) 13.7 /CMM (1.8-8.9); NEUTROPHILS % (AUTO) 87.9 % (43.0-81.0); PLATELET COUNT (AUTO) 143 /CMM (150-450); RDW COEFFICIENT OF VARIATION 15.6 (11.5-15.0); RED BLOOD CELL COUNT(AUTO) 3.29 MIL/uL (4.0-5.2); WHITE BLOOD COUNT (AUTO) 15.6 K/uL (4.3-11.0)
[2017-10-01] MEDS: PHENYTOIN SODIUM IV 50 MG/ML VIAL IV SCH ×3 (04:48→20:01)
[2017-10-01] MEDS: HYDROCODONE/APAP 5/325MG 1 EACH TABLET PO PRN ×2 (04:50→20:02)
[2017-10-01 05:04] LABS: CALCIUM, SERUM 7.2 mg/dL (8.5-10.1); CARBON DIOXIDE 27 mmol/L (21-32); CHLORIDE 118 mmol/L (98-107); GLUCOSE 178 mg/dL (74-106); PHOSPHORUS 2.3 mg/dL (2.5-4.9); POTASSIUM 3.4 mmol/L (3.5-5.1); SODIUM SERUM 151 mmol/L (136-145); UREA NITROGEN, BLOOD 17 mg/dL (7-18)
--- NOTE | 2017-10-01 07:14 | NUR ---
RN NOTES PT OBTUNDED RESPONSIVE TO TACTILE STIMULI. INTUBATED CONNECTED TO VENT. SETTING TOLERATED WELL SATING 98%. TMAX 99 DEG FAHRENHEIT. TELE REVEALS SR THROUGHOUT THE SHIFT. OFF TO PRESSOR. OGT INTACT AND PATENT, FLUSHED H2O ORDER AND TOLERATED WELL. ZERO RESIDUAL. CHEST TUBE INTACT ANS NO LEAKING. F/C DRAINED WELL CVIA GRAVITY. KEPT PT CLEAN AND DRY AND COMFORTABLE TO BED. ENDORSED CONTINUITY OF CARE TO AM NURSE.
--- NOTE | 2017-10-01 07:50 | NUR ---
PT ON VENTILATOR AC 16FIO2 50% NO PEEP VT 500 CONNECTED TO 7.5 CUFFED ET TUBE 24 AT LIP. PT sr 76 ON HAND PASTER SAT 98% . PT OBTUNDED CHEST TUBE ON LEFT SIDE NO LEAK SMALL WITH 300 ML CLEAR YELLOW URINE. PT ON /2 NS AT 50 ML THROUGHT LEFT FEMORAL LINE. BED IN LOW POSITION HOB ELEVATED .
--- NOTE | 2017-10-01 08:35 | NUR ---
RN NOTES SEEN AND EXAMINED BY DR. LOMBARDI. AWARE OF CURRENT LAB VALUES. PT SBP 160-1760S. ORDERED COREG. WILL CONTINUE TO MONITOR.
--- NOTE | 2017-10-01 08:49 | NUR ---
WOUND CARE CONSULT: PT PRESENTS INTUBATED, IMMOBILE WITH GLUTEAL CREASE EXCORIATION, PRESENT ON ADMISSION. RECOMMENDATIONS MADE FOR SKIN PROTECTION AND CARE. DISCUSSED WITH NURSING STAFF. ALL SKIN PROTECTION MEASURES IN PLACE INCLUDING FIRST STEP MATTRESS. CURRENT AVERY SCORE IS 9. WILL SEE PRN. ROUSE IN AGREEMENT WITH PLAN OF CARE. Addendum: 10/01/17 at 0850 by MARLIN HERNANDEZ WNDNU Amended: Links added.
[2017-10-01] MEDS: ASPIRIN 81 MG TAB.CHEW PO SCH (09:08)
[2017-10-01] MEDS: PANTOPRAZOLE 40 MG VIAL IV SCH (09:09)
[2017-10-01] MEDS: CARVEDILOL 6.25 MG TABLET PO SCH ×2 (09:09→20:02)
[2017-10-01] MEDS: ENOXAPARIN SODIUM 30 MG/0.3 ML DISP.SYRIN SQ SCH (09:09)
--- NOTE | 2017-10-01 10:13 | NUR ---
0930 MD VALENZUELA EVALUATING PT 1012 MD GABRIEL EVALUATING PT
[2017-10-01] MEDS ORDERED: PROPOFOL 10MG/ML 50ML 50 ML IV PRN (10:30)
[2017-10-01] MEDS: MEROPENEM 500 MG in IV NS 0.9% 50 ML IV SCH ×2 (10:33→23:05)
--- NOTE | 2017-10-01 10:35 | NUR ---
RN NOTES SEEN AND EXAMINED BY DR. JONES. PT NO LONGER ON HOLD. ALSO SEEN BY DR. LEVY. NO SEIZURE EPISODE NOTED. WILL CLOSELY MONITOR.
[2017-10-01] MEDS: Potassium Chloride 10 MEQ in IV D5W 50 ML IV SCH ×2 (11:09→12:10)
[2017-10-01] MEDS ORDERED: FIBERSOURCE HN 1,000 ML BOTTLE GT PRN (11:30)
[2017-10-01] MEDS ORDERED: K PHOS NEUTRAL 250 MG TABLET PO ONE (12:00)
--- NOTE | 2017-10-01 12:45 | NUR ---
MD Derik DAVID EVALUATED PT. SPOKE WITH FAMIILY ABOUT CALLING MD ASTORGA TO HAVE FAMILY CONFERENCE OVER CODE STATUS PT REMAIN OBTUNDED NON-RESPONSIVE TO NAME EITHER BY RN OR FAMILY MEMBERS
--- NOTE | 2017-10-01 13:30 | NUR ---
RN NOTES SEEN AND EXAMINED BY DR. ASTORGA. AWARE OF CURRENT LAB VALUES. POTASSIUM AND MG REPLACED. PT REMAINS INTUBATED. ON VENT. NO RESPIRATORY DISTRESS NOTED. IV LINE IN PLACE. TOLERATING IVF. PT ON GTF, TOLERATING WELL. WILL CLOSELY MONITOR.
[2017-10-01] MEDS: IV D5W 1,000 ML IV PRN (13:35)
--- NOTE | 2017-10-01 15:53 | NUR ---
FAMILY SON AT BEDSIDE WANTS TO CALL MD ASTORGA TO TAKE OFF VENTILATOR DISCUSSION ABOUT ORGAN DONOR WAS BROUGHT UO FAMILY WANTS TO CONSIDER
--- NOTE | 2017-10-01 16:30 | NUR ---
RN NOTES FAMILY AT BEDSIDE EXPRESSED THAT THEY WANT TO EXTUBATE PT AND PLACE ON COMFORT CARE. DR. VALENZUELA IN THE UNIT AWARE. PAGED DR. RIZWAN EMERY. AWAITING FOR CALL BACK. KEPT PT COMFORTABLE. WILL MONITOR.
--- NOTE | 2017-10-01 16:37 | NUR ---
CALLED [facility] AT 1608 SPOKE WITH SHELLIE
[2017-10-01] MEDS: LACTOBACILLUS RHAMNOSUS GG 1 EACH CAP.SPRINK PO SCH (17:48)
[2017-10-01] MEDS: VANCOMYCIN 1 GM in IV D5W 250 ML IV SCH (18:23)
--- NOTE | 2017-10-01 18:44 | NUR ---
NO SIGNIFICANT CHANGE NOTED PT REPOSITIONED EVERY TWO HOURS NO FEVER ONE LARGE LOOSE BOWEL MOVEMENT. PT BATHED LINEN CHANGED NO RESIDUALS FROM FEEDING FAMILY AT BEDSIDE PENDING MD ASTORGA COMMUNICATION
--- NOTE | 2017-10-01 20:00 | NUR ---
RT RECEIVED [facility] WITH NOTED SETTINGS. ETT 7.5 MARKED 23CM @ THE LIP. ASSEMBLER DC FIELD RING DONE AND ETT SECURE W/ ANCHOR FAST. BILATERAL B/S. VENTS ALARMS CHECKED AND AUDIBLE. VENT PLUGGED IN RED OUTLET. SX WITH SML THN WHITE SECRETIONS. AMBU BAG NOTED AT THE HOB. NO RESP DISTRESS NOTED AT THIS TIME WILL CONTINUE TO MONITOR T/O SHIFT.
--- NOTE | 2017-10-01 20:10 | NUR ---
RN NOTES RECEIVED PT WITH ETT 7.5/24 CM @ LIP CONNECTED TO VENT SETTING AC 16 TV 500 FIO2 50% NO PEEP TOLERATED WELL SATING 98% TELE MONITOR READS SR HR63. PT ASLEEP WELL NO ACUTE RESP DISTRESS. LEFT FEMORAL TLC INTACT AND PATENT RUNNING WITH D5W @ 50 CC/HR FLUSHED WELL. OGT FIBERSOURCE @ 50 CC/HR INTACT PATENCY CHECKED. SBP 170'S NOTED UPON ENTERING PT ROOM. PT IS CALM RECHECKED AND STILL ON 170'S. ALL DUE MEDS GIVEN ORDERED TOGETHER WITH PAIN MEDICINE . KEPT PT CLEAN AND COMFORTABLE IN BED. WILL CLOSELY MONITORED.
[2017-10-01] MEDS: ATORVASTATIN 10 MG TABLET PO SCH (22:12)
[2017-10-02] VITALS (34 sets, daily range): BP systolic 66–177; BP diastolic 33–89
[2017-10-02] MEDS: LORAZEPAM INJ 2 MG/ML VIAL IV PRN ×5 (03:26→19:41)
--- NOTE | 2017-10-02 03:30 | NUR ---
RN NOTES NOTED PT IS SHAKING AFEBRILE. TEMP. 99 DEG. BP 160'S PRN ATIVAN GIVEN TO RELAX MUSCLE. WILL CONTINUE TO MONITOR.
[2017-10-02 04:51] LABS: BASOPHILS % (AUTO) 0.1 % (0.0-2.0); EOSINOPHILS # (AUTO) 0.2 /CMM (0.0-0.7); EOSINOPHILS % (AUTO) 1.2 % (0.0-6.0); HEMATOCRIT 31 % (33-45); HEMOGLOBIN 10.1 g/dL (11.5-14.8); LYMPHOCYTES # (AUTO) 1.1 /CMM (0.8-4.8); LYMPHOCYTES % (AUTO) 8.2 % (20.0-44.0); MEAN CORPUSCULAR HEMOGLOBIN 29 PG (26.0-33.0); MEAN CORPUSCULAR HGB CONC 33 g/dl (31.0-36.0); MEAN CORPUSCULAR VOLUME 88 fL (82-100); MONOCYTES # (AUTO) 0.6 /CMM (0.1-1.30); MONOCYTES % (AUTO) 4.7 % (2.0-12.0); NEUTROPHILS # (AUTO) 11.1 /CMM (1.8-8.9); NEUTROPHILS % (AUTO) 85.8 % (43.0-81.0); PLATELET COUNT (AUTO) 175 /CMM (150-450); RDW COEFFICIENT OF VARIATION 15.9 (11.5-15.0); RED BLOOD CELL COUNT(AUTO) 3.46 MIL/uL (4.0-5.2)
[2017-10-02 05:24] LABS: CALCIUM, SERUM 7.6 mg/dL (8.5-10.1); CARBON DIOXIDE 30 mmol/L (21-32); CHLORIDE 120 mmol/L (98-107); CREATININE 0.9 mg/dL (0.6-1.3); GLUCOSE 162 mg/dL (74-106); MAGNESIUM 2.1 mg/dL (1.8-2.4); PHOSPHORUS 2.8 mg/dL (2.5-4.9); POTASSIUM 3.8 mmol/L (3.5-5.1); UREA NITROGEN, BLOOD 18 mg/dL (7-18)
[2017-10-02] MEDS: PHENYTOIN SODIUM IV 50 MG/ML VIAL IV SCH ×2 (05:36→13:04)
[2017-10-02 06:01] LABS: SODIUM SERUM 156 mmol/L (136-145)
--- NOTE | 2017-10-02 06:45 | NUR ---
RN NOTES NO SIGNIFICANT APURVA THROUGHOUT THE SHIFT. ETT AND VENT SETTING TOLERATED WELL. AFEBRILE. NO PRESSORS. VS CONTINUE MONITOR CLOSELY. PAIN MEDICINE AND PRN MEDS GIVEN ORDERED REMAINED EFFECTIVE. BED BATH DONE, NO FURTHER SKIN ISSUES SHOWS. IV ATB AND DUE MEDS TOLERATED WELL WITHOUT ASE NOTED. LAB CALLED SPOKE BY CHARGE NURSE REGARDING CRITICAL VALUE OF [id number] RITTER. PT STILL ON IVF D5W @ 50 CC/HR ON LT. FEMORAL TLC. OGT TOLERATED WELL NO ASPIRATION SHOWS NO RESIDUAL REMAINED INTACT AND PATENT. WILL ENDORSED CONTINUITY OF CARE AND TO FOLLOW UP PMD REGARDING RESP. GREEN [employer]Y REQUESTING FOR A MEETING.
--- NOTE | 2017-10-02 07:00 | NUR ---
BAKERY CLERK INITIAL NOTES RN RECEIVED PT IN BED OBTUNDED WITH ETT IN PLACE AT 7.5/24 CM VENT SETTING AC 16 TV 500 FIO2 50% PEEP 0 TOLERATED WELL SATING 96% TELE MONITOR READS SR HR 62. PT ASLEEP WELL NO ACUTE RESP DISTRESS. LEFT FEMORAL TLC INTACT AND PATENT RUNNING WITH D5W @ 50 CC/HR FLUSHED WELL. ORAL GASTRIC TUBE INPLACE RUNNING FIBERSOURCE @ 50 ML/HR INTACT PATENCY CHECKED NO RESIDUALS NOTED. SBP 150'S NOTED UPON ENTERING PT ROOM. PT IS CALM HOWEVER TWITCHING OF RIGHT ARM NOTED, PM RN STATES THIS HAS BEEN HAPPENING THROUGHOUT THE NIGHT ATIVAN WILL BE GIVEN AND MD AND CHARGE WILL BE NOTIFIED. KEPT PT CLEAN AND COMFORTABLE IN BED. RN WILL MONITOR CLOSELY.
[2017-10-02] MEDS: PANTOPRAZOLE 40 MG VIAL IV SCH (08:55)
[2017-10-02] MEDS: ASPIRIN 81 MG TAB.CHEW PO SCH (08:56)
[2017-10-02] MEDS: CARVEDILOL 6.25 MG TABLET PO SCH (08:56)
[2017-10-02] MEDS: LACTOBACILLUS RHAMNOSUS GG 1 EACH CAP.SPRINK PO SCH (08:56)
[2017-10-02] MEDS: ENOXAPARIN SODIUM 30 MG/0.3 ML DISP.SYRIN SQ SCH (09:02)
--- NOTE | 2017-10-02 10:25 | NUR ---
RN NOTE RN SPOKE WITH PATIENT SON PATIENT SON JEFFREY THE WANT TO SPEAK WITH MD ASTORGA IN REGARDS TO REMOVING BREATHING TUBES STATES HE WOULD LIKE TO SPEAK WITH MD PRIOR TO THIS DISCUSSION. RN INFORMED CHARGE NURSE EVELINA CHARGE NURSE INFORMED MD OF THE PATIENT FAMILIES WISHES AND SON PHONE NUMBER PROVIDED TO THE MD RN WILL CONTINUE TO MONITOR
[2017-10-02] MEDS: MEROPENEM 500 MG in IV NS 0.9% 50 ML IV SCH (10:34)
[2017-10-02] MEDS: HYDROCODONE/APAP 5/325MG 1 EACH TABLET PO PRN (10:41)
[2017-10-02] MEDS: VANCOMYCIN 1 GM in IV D5W 250 ML IV SCH (11:20)
[2017-10-02] MEDS: IV D5W 1,000 ML IV PRN (13:10)
--- NOTE | 2017-10-02 15:19 | NUR ---
RN NOTE PATIENT SON CONTACTED VIA MD PATEL IN REGARDS TO PLAN OF CARE RN AWAITING ORDERS CHARGE NURSE EVELINA FOLLOWING PATIENT REMAINS IN NO DISTRESS AT THIS TIME
--- NOTE | 2017-10-02 15:26 | NUR ---
RN NOTE PATIENT FAMILY INFORMED OF PLAN OF CARE PATIENT FAMILY WISHES TO MAKE PATIENT A DNR/ DNI PER MD ORDERS RN SHOULD CONTACT [facility] AND ALLOW THEM TO CONTINUE CARE PATIENT IS CURRENTLY TOLERATING VENT SETTING WELL AT THIS TIME.
--- NOTE | 2017-10-02 15:30 | NUR ---
RN NOTE RN CALLED [facility] AND SPOKE WITH NATHEN IN REGARD TO THE PATIENT CURRENT CODE STATUS RN INFORMED THAT THE CASE MANGER WOULD BE RETURN THE CALL SHORTLY RN AWAITING ORDERS PER [facility]
--- NOTE | 2017-10-02 15:43 | NUR ---
RN NOTE RN SPOKE WITH [facility]- EVE WELDER TOOL AND DIE IN REGARDS ORGAN DONATION. PATIENT DOENT MEET ORGAN DONATION CRITERIA PER [facility] DUE TO AGE AND PATIENT CURRENTLY NOT BEING BRAIN . RN ADVISED TO CONTACT [facility] WITH A TIME OF CARDIAC . RN CONTACTED PATIENTS SON DOMENICA JOHN WITH AND UPDATE HIM ON THE CARE , PATIENT SON STATES HE REQUEST THAT THE PATIENT IS PLACE COMFORT MEASURES , AND DISCONTINUE MEDICATION AND IV FLUIDS ALONG WITH EXACERBATING THE PATIENT. RN ACKNOWLEDGED AND CHARGE NURSE NOTIFIED AND MD NOTIFIED FOR ORDERS
[2017-10-02] MEDS ORDERED: MORPHINE SULFATE INJ 4 MG/ML DISP.SYRIN IV STA (15:59)
--- NOTE | 2017-10-02 16:02 | NUR ---
RN NOTE PATIENT SON DOMENICA STATES TO MAKE MOTHER COMFORT MEASURES ONLY , MD PATEL NOTIFIED , VIA CHARGE NURSE EVELINA , CHARGE NURSE EVELINA PLACES ORDERS FOR EXTUBATION, MORPHINE, AND ATIVAN PER MD ORDERS. PATIENT COMFORT MEDICATION ORDERED AND STAT DOSE OF MORPHINE 4MG IV NOW ORDERED PRIOR TO EXTUBATION RN WILL ADMINISTER. DOMENICA JOHN PATIENT SON CONTACTED TO INFORMED HIM OF PENDING EXTUBATION AND CHARGE NURSE EVELINA INQUIRING ABOUT IF FAMILY WOULD LIKE TO BE PRESENT FOR THE EXTUBATION SON DOMENICA STATES HE WILL NOT BE PRESENT FOR EXTUBATION EXTUBATION SCHEDULED FOR 5PM PENDING PATIENTS COMFORT LEVEL. RT HAS BEEN NOTIFIED RN AWAITING FURTHER ORDERS
--- NOTE | 2017-10-02 16:25 | NUR ---
RN NOTE PER CHARGE NURSE ORDERS STAT MORPHINE GIVEN AND PRN ATIVAN ADMINISTERED FOR COMFORT MEASURES PATIENT REMAINS STABLE AT THIS TIME RN WILL CONTINUE TO MONITOR
[2017-10-02] MEDS ORDERED: DC PROPOFOL WHEN EXTUBATED XX PRN (16:30)
--- NOTE | 2017-10-02 17:11 | NUR ---
RN NOTE RT WILSON NOTIFIED ABOUT THE NEED FOR EXTUBATION PER FAMILY WISHES, MD VALENZUELA NOTIFIED AND AGREES WITH PLAN OF CARE FOR COMFORT MEASURES, RN CONTINUES TO MONITOR THE PATIENT FOR COMFORT
[2017-10-02] MEDS: MORPHINE SULFATE INJ 4 MG/ML DISP.SYRIN IV PRN ×2 (17:21→19:39)
--- NOTE | 2017-10-02 17:26 | NUR ---
RN NOTE PATIENT GIVEN MORPHINE AND ATIVAN PER ORDER PATIENT STABLE AT THIS TIME NO SOB NOTED PATIENT STILL INTUBATED NO CHANGES IN ORIENTATION AT THIS TIME .
--- NOTE | 2017-10-02 17:45 | NUR ---
RT NOTE: PATIENT EXTUBATED PER MD ORDER. PLACED ON OXYGEN 5LPM VIA NASAL CANNULA. RN (LEA) AWARE.
--- NOTE | 2017-10-02 17:45 | NUR ---
RODRICK NOTE PATIENT EXTUBATED BY STEVE HERNÁNDEZ, PATIENT PLACED ON 5L NASAL CANULA AT THIS TIME RN WILL CONTINUE TO MONITOR PATIENTS VITALS AND ALSO PATIENTS CONDITION. BELKIS HOYT NOTIFIED. Addendum: 10/02/17 at 1815 by LEA ROJAS RN RN NOTE PATIENT ETT REMOVED DURING EXTUBATION BELKIS SHIRLEY
--- NOTE | 2017-10-02 18:35 | NUR ---
RN NOTE PATIENT IN BED OBTUNDED, VITALS SIGNS WITHIN NORMAL LIMITS, LABORED BREATHING NOTED, PATIENT ASSESS FOR DISTRESS NO DISTRESS NOTED AT THIS TIME RN WILL ENDORSE CONTINUATION OF CARE TO PM RN
--- NOTE | 2017-10-02 19:45 | NUR ---
RN NOTES RECEIVED PT IN LABORED BREATHING, EXTUBATED @ 1745 PER AM NURSE. CHEST TUBE INTACT NO LEAKING. F/C DRAINING WELL VIA GRAVITY. IV SITE ON LEFT FEMORAL TLC INTACT AND PATENT. INITIAL VS TEMP 99 RESP 26 HR 65 BP 139/49 [facility] SATURATION 95%. KEPT PT CLEAN AND COMFORTABLE IN BED. MORPHINE AND ATIVAN GIVEN ORDERED FOR COMFORT. WILL CONTINUE TO MONITOR.
--- NOTE | 2017-10-02 20:14 | NUR ---
RN NOTES TRANSFER TO MED SURG AT ROOM 206 FOR CONTINUITY OF CARE REPORT GIVEN TO FRANK.
[2017-10-03] MEDS: MORPHINE SULFATE INJ 4 MG/ML DISP.SYRIN IV PRN ×4 (06:36→17:42)
[2017-10-03 06:56] LABS: BASOPHILS % (AUTO) 0.2 % (0.0-2.0); EOSINOPHILS # (AUTO) 0.5 /CMM (0.0-0.7); EOSINOPHILS % (AUTO) 2.5 % (0.0-6.0); HEMATOCRIT 37 % (33-45); HEMOGLOBIN 12.1 g/dL (11.5-14.8); LYMPHOCYTES # (AUTO) 1.7 /CMM (0.8-4.8); LYMPHOCYTES % (AUTO) 8.7 % (20.0-44.0); MEAN CORPUSCULAR HEMOGLOBIN 29 PG (26.0-33.0); MEAN CORPUSCULAR HGB CONC 32 g/dl (31.0-36.0); MEAN CORPUSCULAR VOLUME 89 fL (82-100); MONOCYTES # (AUTO) 1.1 /CMM (0.1-1.30); MONOCYTES % (AUTO) 5.6 % (2.0-12.0); NEUTROPHILS # (AUTO) 16.6 /CMM (1.8-8.9); PLATELET COUNT (AUTO) 306 /CMM (150-450); RDW COEFFICIENT OF VARIATION 15.8 (11.5-15.0); RED BLOOD CELL COUNT(AUTO) 4.18 MIL/uL (4.0-5.2)
[2017-10-03 07:19] LABS: CALCIUM, SERUM 8.3 mg/dL (8.5-10.1); CARBON DIOXIDE 32 mmol/L (21-32); CHLORIDE 119 mmol/L (98-107); CREATININE 1.1 mg/dL (0.6-1.3); GLUCOSE 158 mg/dL (74-106); MAGNESIUM 2.2 mg/dL (1.8-2.4); PHOSPHORUS 3.6 mg/dL (2.5-4.9); POTASSIUM 4.5 mmol/L (3.5-5.1); UREA NITROGEN, BLOOD 27 mg/dL (7-18)
[2017-10-03 07:21] LABS: SODIUM SERUM 157 mmol/L (136-145)
--- NOTE | 2017-10-03 07:36 | NUR ---
MS/RN OPENING NOTE PATIENT IN BED WITH EYES CLOSED, NOTED WITH SHALLOW RESPIRATION. ON COMFORT MEASURES. NPO STATUS. A/O X 1. NON VERBAL, ALL NEEDS ATTENDED TO. CALL LIGHT WITHIN REACH. WILL CONTINUE TO MONITOR TO ENSURE SAFETY.
[2017-10-03 08:00] VITALS: BP 149/77
[2017-10-03] MEDS: LORAZEPAM INJ 2 MG/ML VIAL IV PRN ×3 (08:08→15:46)
--- NOTE | 2017-10-03 11:04 | NUR ---
MS/RN SEEN BY DR ASTORGA PATIENT SEEN BY DR ASTORGA WITH NO ORDERS AT THIS TIME.
--- NOTE | 2017-10-03 14:47 | NUR ---
MS/RN SMALL CATH REMOVED S/O FC REMOVED TOLERATED WELL. NO SIGNS OF INFECTION NOTED. ALL NEEDS ATTENDED TO. WILL CONTINUE TO MONITOR FOR URINARY OUTPUT.
[2017-10-03 16:00] VITALS: BP 169/70
--- NOTE | 2017-10-03 16:35 | NUR ---
MS/RN SPOKE WITH DR ASTORGA. SPOKE WITH DR ASTORGA AND MADE AWARE PATIENT NOTED WITH ELEVATED TEMP OF 101.4 AND REQUESTED FOR ANTIPYRETIC MEDICATIONS. PER DR ASTORGA NO NEW ORDERS.
--- NOTE | 2017-10-03 18:45 | NUR ---
MS/RN CLOSING NOTE PATIENT IN BED ON COMFORT MEASURES. NOTED WITH SHALLOW RESPIRATIONS. PRN MORPHINE AND ATIVAN VIA IV PUSH ADMINISTER ORDERED. ALL NEEDS ATTENDED TO. WILL ENDORSE TO NEXT SHIFT FOR CONTINUITY OF CARE.
--- NOTE | 2017-10-03 19:10 | NUR ---
MS RN NOTES PATIENT IN BED, APPEARS COMFORTABLE. NOTED WITH SHALLOW RESPIRATIONS. ON COMFORT MEASURES. ON PRN MORPHINE AND ATIVAN IVP. ALL NEEDS ANTICIPATED AND ATTENDED. SAFETY PRECAUTIONS OBSERVED. WILL CONTINUE TO MONITOR.
[2017-10-03 20:00] VITALS: BP 136/60
--- NOTE | 2017-10-03 21:46 | NUR ---
LUZ MARINA ( AUTO TECHNICIAN ) AT BEDSIDE.
[2017-10-04] MEDS: MORPHINE SULFATE INJ 4 MG/ML DISP.SYRIN IV PRN (04:01)
[2017-10-04 06:40] LABS: CALCIUM, SERUM 8.3 mg/dL (8.5-10.1); CARBON DIOXIDE 29 mmol/L (21-32); CREATININE 1.8 mg/dL (0.6-1.3); GLUCOSE 157 mg/dL (74-106); POTASSIUM 4.9 mmol/L (3.5-5.1); UREA NITROGEN, BLOOD 48 mg/dL (7-18)
[2017-10-04 06:44] LABS: CHLORIDE 127 mmol/L (98-107); SODIUM SERUM 166 mmol/L (136-145)
--- NOTE | 2017-10-04 07:07 | NUR ---
MS RN NOTES PATIENT IN BED, APPEARS COMFORTABLE. ON PRN MORPHINE AND ATIVAN IVP. ALL NEEDS ANTICIPATED AND ATTENDED. SAFETY PRECAUTIONS OBSERVED. PT ON COMFORT MEASURES. CHEST TUBE INTACT AND PATENT , DRAINING. WILL ENDORSE TO NEXT SHIFT FOR APURVA.
[2017-10-04 08:00] VITALS: BP 117/57
--- NOTE | 2017-10-04 08:00 | NUR ---
RN NOTES RECEIVED PATIENT IN THE BED COMFORT MEASURE, O2-MASK ON 15L /HR. PATIENT HAS A CHEST TUBE INTACT, PATIENT INCONTINENT, PATIENT HAS NO S/S OF DISTRESS, CALL LIGHT WITHIN TO REACH, CONTINUED MONITORING.
--- NOTE | 2017-10-04 12:00 | NUR ---
RN NOTES PATIENT RESTING IN THE BED COMFORTABLE, RESPIRATION RATE IS 6 AT THIS TIME, WILL CONTINUED COMFORT CARE.
--- NOTE | 2017-10-04 13:35 | NUR ---
MS RN NOTES PATIENT NOTED WITH NO BREATH SOUNDS. NOT BREATHING. NO HEART BEAT. PUPPIES FIXED. PATIENT . PATIENTS NURSE AWARE. WILL NOTIFY NEXT OF KIN AND PERFORM POST MORTEM CARE.
--- NOTE | 2017-10-04 13:35 | NUR ---
RN NOTES PATIENT NOTES NO RESPIRATION, HO HEART RATE, NO BREATHING OBSERVED FOR 3 MINS. CONFIRMED WITH ANOTHER RN NAME ARIAN. PATIENT , NOTIFIED DR PATEL, CPC, AND SON NAME BRIAN. ALSO CALLED [facility] REF# OBTAINED [id number]. POST MORTEM CARE PERFORMED, BODY TRANSFECTED [place].
== END 2017-10-04 13:35 | disposition expired | DRG 207 ==
LOC: ICU 07:24 → MEDSG2 10-02 20:13
PROVIDERS: ADMIT Internal Medicine; ATTEND Internal Medicine
PROC: 0BH17EZ Insertion of Endotracheal Airway into Trachea, Via Natural or Artificial Opening (ICD-10-PCS; principal; 2017-09-28)
PROC: 5A1955Z Respiratory Ventilation, Greater than 96 Consecutive Hours (ICD-10-PCS; 2017-09-28)
PROC: 5A2204Z Restoration of Cardiac Rhythm, Single (ICD-10-PCS; 2017-09-28)
PROC: 0W9B30Z Drainage of Left Pleural Cavity with Drainage Device, Percutaneous Approach (ICD-10-PCS; 2017-09-28)
PROC: 0W9B30Z Drainage of Left Pleural Cavity with Drainage Device, Percutaneous Approach (ICD-10-PCS; 2017-09-28)
DX: J69.0 Pneumonitis due to inhalation of food and vomit (principal); I21.A1 Myocardial infarction type 2; Z66 Do not resuscitate; Z51.5 Encounter for palliative care; N17.0 Acute kidney failure with tubular necrosis; R57.9 Shock, unspecified; J93.0 Spontaneous tension pneumothorax; G93.1 Anoxic brain damage, not elsewhere classified; E87.0 Hyperosmolality and hypernatremia; R78.81 Bacteremia; B95.8 Unspecified staphylococcus as the cause of diseases classified elsewhere; J96.00 Acute respiratory failure, unspecified whether with hypoxia or hypercapnia; F32.3 Major depressive disorder, single episode, severe with psychotic features; Z99.11 Dependence on respirator [ventilator] status; I12.9 Hypertensive chronic kidney disease with stage 1 through stage 4 chronic kidney disease, or unspecified chronic kidney disease; N18.9 Chronic kidney disease, unspecified; F31.9 Bipolar disorder, unspecified; G25.3 Myoclonus; Z79.82 Long term (current) use of aspirin; Z79.899 Other long term (current) drug therapy; F03.90 Unspecified dementia, unspecified severity, without behavioral disturbance, psychotic disturbance, mood disturbance, and anxiety; F29 Unspecified psychosis not due to a substance or known physiological condition; D69.6 Thrombocytopenia, unspecified; D63.8 Anemia in other chronic diseases classified elsewhere; E78.5 Hyperlipidemia, unspecified; I45.10 Unspecified right bundle-branch block; I25.2 Old myocardial infarction
CPT/HCPCS: 31720; 36415; 36600; 70450-TC; 71045-TC; 80048-TC; 80053-TC; 80061-TC; 80202-TC; 82803-TC; 83735-TC; 84100-TC; 84484-TC; 85025-TC; 85730-TC; 87040-TC; 87070-TC; 87081-TC; 87086-TC; 92950-TC; 93307-TC; 94003-TC; 94762-TC; 94799-TC; 95819-TC; 99082-TC; A4216; A4606; A6402; C1751; C9113; J1165; J1650; J2060; J2185; J2270; J3370; J3480; J3490; J7030; J7060; J7070; Z7610